=== PATIENT | female | born 1960 | race Caucasian/White ===

== ENCOUNTER 2020-12-18 20:17 | Emergency (ER) | payer BC ==
[~2020-12-18] VITALS: Ht 172.7 cm; Wt 136.0 kg
[~2020-12-18 20:17] MED LIST: ADVIL200 MG OR; AMOXICILLIN500 MG PO; BACTRIM DS1 TAB PO; CHERATUSSIN OR; CIPRO500 MG OR; INFANRIX IM; LORTAB 5 OR; MULTI VIT PO; NYSTATIN100000 M3 TOP
[2020-12-18] MEDS ORDERED: ESTRACE0.5 MG PO (21:00)
[2020-12-18] MEDS ORDERED: MAGNESIUM30 MG PO (21:01)
[2020-12-18 21:33] LABS: URINE BILIRUBIN - DIPSTICK NEGATIVE (NEGATIVE); URINE BLOOD DIPSTICK NEGATIVE (NEGATIVE); URINE COLOR YELLOW; URINE GLUCOSE - DIPSTICK NEGATIVE (NEGATIVE); URINE KETONE NEGATIVE (NEGATIVE); URINE LEUK ESTERASE NEGATIVE (NEGATIVE); URINE PH 6.5 (4.5-8.0); URINE PROTEIN - DIPSTICK NEGATIVE (NEG-TRACE); URINE UROBILINOGEN - DIPSTICK 0.2 E.U./dL (0.2)
[2020-12-18 21:34] LABS: IMMATURE GRANULOCYTES 0.7 % (0.0-5.0); MEAN CORPUSCULAR HGB 28.7 pG CALC (26.0-32.0); NEUT# 20.48 thou/uL (2.00-7.15); RED BLOOD COUNT 5.4 mill/uL (4.20-5.60); RED CELL DISTRI WIDTH 12.9 % (11.5-15.5); URINE NITRITE - DIPSTICK NEGATIVE (Negative)
[2020-12-18 21:36] LABS: HEMOGLOBIN 15.5 g/dl (12.0-16.0); MEAN CELL VOLUME 92.6 fL CALC (80.0-100.0)
[2020-12-18 21:46] LABS: ALBUMIN 4.5 g/dL (3.2-5.0); ALKALINE PHOSPHATASE 120 u/l (38-126); ANION GAP 16 (6-22 (CALC)); BILIRUBIN, TOTAL 0.7 mg/dL (0.0-1.4); BUN 26 mg/dL (7-17); BUN/CREATININE RATIO 24 (12-20 (CALC)); CARBON DIOXIDE 30 mmol/l (22-30); CHLORIDE 99 mmol/l (95-108); CREATININE 1.1 mg/dL (0.5-1.0); GFR 51 ML/MIN (>=60 (CALC)); GFR FOR AFR.AMER. > 60 ML/MIN (>=60 (CALC)); POTASSIUM 4.8 mmol/l (3.5-5.1); SGOT/AST 34 u/l (14-36); SODIUM 140 mmol/l (137-146); TOTAL PROTEIN 8.7 g/dL (6.3-8.2)
[2020-12-18 23:08] LABS: MYOGLOBIN 29 ng/mL (0 - 62)
[2020-12-18] MEDS ORDERED: CYCLOBENZAPRINE10 MG PO (23:33)
[2020-12-18] MEDS ORDERED: LORTAB 1010 MG PO (23:33)
[2020-12-18 23:47] VITALS: BP 152/74
== END 2020-12-18 23:55 | disposition home or self-care (01) | DRG 552 ==
LOC: ED 20:17
PROVIDERS: Emergency Medicine
DX: M47.816 Spondylosis without myelopathy or radiculopathy, lumbar region (principal); M15.9 Polyosteoarthritis, unspecified